=== PATIENT | female | born 1990 | race Caucasian/White ===

== ENCOUNTER 2020-04-30 11:04 | Outpatient (REF) | payer OTHER, SELFPAY | END 2020-04-30 11:05 | disposition home or self-care (01) | LOC: HO.LAB 11:04 | PROVIDERS: Visit Provider Internal Medicine | DX: Z20.828 Contact with and (suspected) exposure to other viral communicable diseases (principal) | CPT/HCPCS: 36415; C9803; U0003 ==

== ENCOUNTER 2020-07-13 08:33 | Outpatient (REF) | payer OTHER, SELFPAY | END 2020-07-13 08:34 | disposition home or self-care (01) | LOC: HO.LAB 08:33 | PROVIDERS: Visit Provider Internal Medicine | DX: Z20.822 Contact with and (suspected) exposure to COVID-19 (principal) | CPT/HCPCS: 36415; C9803; U0003; U0005 ==

== ENCOUNTER 2021-02-18 10:32 | Outpatient (REF) | payer OTHER, SELFPAY ==
[2021-02-18 12:13] LABS: MANUAL DIFF FLAG NO
[2021-02-18 12:55] LABS: Basophils Absolute Auto 0.1 X10*3/uL (0.0-0.2); Basophils Percent Auto 0.6 % (0-2); Eosinophils Absolute Auto 0.4 X10*3/uL (0.0-0.4); Eosinophils Percent Auto 3.8 % (0-4); Hematocrit 40.2 % (37-47); Hemoglobin 12.7 g/dl (12.0-16.0); Imm Gran Abs Auto 0.08 X10*3/uL (0.00-0.03); Imm Gran Pct Auto 0.7 % (0.0-0.4); Lymphocytes Percent Auto 18.9 % (20-40); Mean Corpuscular HGB Conc 31.6 g/dl (31.0-35.0); Mean Platelet Volume 10.8 fL (9.4-12.3); Monocytes Absolute Auto 0.7 X10*3/uL (0.1-1.2); Monocytes Percent Auto 6.3 % (2-11); NRBC Pct Auto 0.2 /100WBC (0.0-0.2); Neutrophils Absolute Auto 7.5 X10*3/uL (2.0-8.3); Neutrophils Percent Auto 69.7 % (45-73); Platelet Count 298 X10*3/uL (160-400); Red Blood Count 4.23 X10*6/uL (4.20-5.50); White Blood Count 10.8 X10*3/uL (4.8-10.8)
[2021-02-18 13:37] LABS: Alanine Aminotransferase 15 U/L (0-31); Albumin Level 4.3 g/dL (3.5-5.0); Alkaline Phosphatase 104 U/L (39-117); Anion Gap 11 (12-20); Aspartate Amino Transferase 16 U/L (5-31); Bilirubin Total 0.2 mg/dL (0.0-1.0); Blood Urea Nitrogen 11 mg/dL (9-16); C Reactive Protein 0.57 mg/dL (< or = 0.50); Calcium 9.4 mg/dL (8.4-10.2); Carbon Dioxide 27 mmol/L (22-29); Chloride 105 mmol/L (96-108); Estimated Glomerular Filt Rate > 60; Glucose Random 94 mg/dL (60-115); Lipase 19 U/L (8-78); Potassium 4.4 mmol/L (3.3-5.1); Sodium 139 mmol/L (135-145); Total Protein 7.4 g/dL (6.5-8.0)
[2021-02-18 13:40] LABS: Amylase 41 U/L (28-100)
== END 2021-02-18 10:33 | disposition home or self-care (01) ==
LOC: HO.LAB 10:32
PROVIDERS: PCP Nurse Practitioner Family; Referring Provider Nurse Practitioner Family; Visit Provider Nurse Practitioner
DX: K21.9 Gastro-esophageal reflux disease without esophagitis (principal); K52.9 Noninfective gastroenteritis and colitis, unspecified; D64.9 Anemia, unspecified
CPT/HCPCS: 36415; 80053; 82150; 83690; 85025; 86140; 99202

== ENCOUNTER 2021-02-21 11:56 | Outpatient (REF) | payer OTHER, SELFPAY ==
[2021-02-21 13:15] LABS: CDiff Gene PCR NEGATIVE (Negative)
== END 2021-02-21 11:57 | disposition home or self-care (01) ==
LOC: HO.LNP 11:56
PROVIDERS: Visit Provider Nurse Practitioner
DX: K21.9 Gastro-esophageal reflux disease without esophagitis (principal); K52.9 Noninfective gastroenteritis and colitis, unspecified
CPT/HCPCS: 87045; 87046; 87338; 87493

== ENCOUNTER 2021-03-07 08:57 | Outpatient (REF) | payer OTHER, SELFPAY ==
--- NOTE | ~2021-03-07 | US_ITS ---
EXAMINATION: US ABDOMEN COMPLETE CLINICAL INFORMATION: Gastroesophageal reflux disease without esophagitis. COMPARISON: CT abdomen and pelvis without contrast dated 12/01/2010. TECHNIQUE: Real-time imaging of the abdominal viscera. FINDINGS: PANCREAS: Normal. ABDOMINAL AORTA: The proximal, mid, and distal segments are normal in caliber. INFERIOR VENA CAVA: Visualized portions are normal. LIVER: The liver is normal in size. The liver contour is normal. Liver echotexture is increased probably representing fatty infiltration. No focal hepatic lesion. There is no intrahepatic biliary duct dilatation seen. GALLBLADDER: Normal. The gallbladder is physiologically distended without evidence of stones, sludge, polyps, wall thickening or pericholecystic fluid. COMMON BILE DUCT: Normal in caliber measuring 0.3 cm in diameter. RIGHT KIDNEY: Normal. No hydronephrosis. No renal calculi or focal parenchymal lesions. The kidney measures 9.6 cm in maximum dimension. LEFT KIDNEY: Normal. No hydronephrosis. No renal calculi or focal parenchymal lesions. The kidney measures 10.2 cm in maximum dimension. SPLEEN: Normal. The spleen measures 9.1 cm in maximum dimension. FREE FLUID: None. US/US abdomen complete IMPRESSION: Echogenic liver probably representing fatty infiltration.
== END 2021-03-07 08:58 | disposition home or self-care (01) ==
LOC: HO.US 08:57
PROVIDERS: PCP Nurse Practitioner Family; Visit Provider Nurse Practitioner
DX: K21.9 Gastro-esophageal reflux disease without esophagitis (principal); K52.9 Noninfective gastroenteritis and colitis, unspecified
CPT/HCPCS: 76700

== ENCOUNTER → 2021-03-19 15:49 | Outpatient (BNVA) | payer OTHER, SELFPAY | PROVIDERS: PCP Nurse Practitioner Family; Visit Provider Nurse Practitioner ==

== ENCOUNTER 2022-05-15 03:01 | Emergency (ER) | payer OTHER, SELFPAY ==
--- NOTE | ~2022-05-15 | XR_ITS ---
EXAMINATION: XR ANKLE, RIGHT CLINICAL INFORMATION: Fall COMPARISON: 11/04/2018 TECHNIQUE: AP, lateral, and mortise views of the right ankle. FINDINGS: No fracture or dislocation. The ankle mortise is congruent. There may be a small ankle joint effusion. Small plantar heel spur. The soft tissues are otherwise unremarkable. XR/XR ankle RT min 3V IMPRESSION: No fracture or malalignment. Possible small ankle joint effusion.
[2022-05-15 03:07] VITALS: BP 106/62; PULSE 76; RESP 16; TEMP 36.6; O2SAT 100; BMI 27.6
--- NOTE | 2022-05-15 03:20 | ED_ITS ---
HPI - Fall General Chief Complaint: Fall Stated Complaint: fall Time Seen by Provider: 05/15/22 03:04 Source: patient Mode of arrival: ambulatory Limitations: no limitations History of Present Illness HPI Narrative: Patient got up in half sleep to go to bathroom which was downstairs loss the step fell down about 12 steps mostly injuring her right ankle complaining of pain in the right ankle with slight swelling no other injuries no head injury no loss of conscious RO seizures no back pain no shortness of breath patient not any blood thinner Related Data Home Medications Medication Instructions Recorded Confirmed levetiracetam 500 mg tablet 500 mg PO BID 02/18/21 sertraline 50 mg tablet 50 mg PO DAILY 02/18/21 Previous Rx's Medication Instructions Recorded famotidine 40 mg tablet (Pepcid) 40 mg PO BEDTIME 30 days #30 tabs 02/18/21 alosetron 0.5 mg tablet (Lotronex) 0.5 mg PO BID 30 days #60 tabs 03/19/21 Allergies Allergy/AdvReac Type Severity Reaction Status Date / Time latex [LATEX] Allergy Severe RASH Verified 05/15/22 03:28 gabapentin [GABAPENTIN] Allergy Unknown TACHYCARDIA, Verified 05/15/22 03:28 heart palpitations Review of Systems Review of Systems: Yes all other systems are reviewed and are negative [facility] Family History Family History Maternal Grandmother No problems noted. Mother No problems noted. Social History Social History Alcohol intake: current Alcohol intake frequency: holidays/special occasions only Smoked in Last 30 Days: No Use of substances other than those prescribed or required for medical reasons: No Advance Directives: No Advance Directives Information Provided: Yes Physical Exam Vital Signs: Vital Signs: Last Vital Signs Temp 97.8 F 05/15/22 03:07 Pulse 76 05/15/22 03:07 Resp 16 05/15/22 03:07 BP 106/62 05/15/22 03:07 Pulse Ox 100 05/15/22 03:07 O2 Del Method 05/15/22 03:07 BMI result Body Mass Index 27.6 Appearance: Alert. Oriented X3. No acute distress. Eyes: PERRLA, No Nystagmus ENT: Pharynx normal. Oral Mucosa moist Neck: Normal inspection. Neck supple. No midline tenderness CVS: Normal heart rate and rhythm. Pulses normal. Respiratory: No respiratory distress. Equal air entry bilateral, no wheezing/rales/rhonchi no rib pain Abdomen: Soft and nontender. Bowel sounds are present, no mass palpable, no CVA tenderness Skin: Skin warm and dry. Normal skin color. Normal skin turgor. back: No spinal tenderness Extremities: No lower extremity edema. No calf tenderness right ankles soft tissue swelling posterolateral malleolus with tenderness no deformity neurovascular intact Neuro: Oriented X 3. No motor deficit. No sensory deficit.No cerebellar signs , cranial nerves II-XII intact Medications Administered Discontinued Medications Generic Name Dose Route Start Last Admin Trade Name Freq PRN Reason Stop Dose Admin Oxycodone HCl 10 mg 05/15/22 03:23 05/15/22 03:35 Oxycodone Hcl Immed Release 5 Mg Tablet PO 05/15/22 03:24 10 mg ONCE ONE Administration Medical Decision Making Medical Decision Making [facility] Narrative: Patient x-ray negative for fracture showed small amount of effusion the right ankle joint likely from the sprain will discharge patient home on ankle brace crutches and ibuprofen Discharge Plan Discharge Clinical Impression: Right ankle sprain Patient Disposition: Home, Self-Care Instructions: Ankle Sprain (ED) Additional Instructions: Ankle brace advised Use crutches for ambulation Ibuprofen for pain Follow with ortho if not better Prescriptions: No Action sertraline 50 mg tablet 50 mg PO DAILY levetiracetam 500 mg tablet 500 mg PO BID famotidine [Pepcid] 40 mg tablet 40 mg PO BEDTIME 30 Days Qty: 30 3RF Rx Instructions: Please cancel order for protonix and fill for pepcid/famotidine only alosetron [Lotronex] 0.5 mg tablet 0.5 mg PO BID 30 Days Qty: 60 3RF Stand Alone Forms: Work/School Release
[2022-05-15] MEDS: oxyCODONE HCl Immed Release 5 MG TABLET 10 MG PO (03:35)
== END 2022-05-15 05:35 | disposition home or self-care (01) ==
PROVIDERS: Emergency Provider Internal Medicine; PCP Nurse Practitioner Family
DX: S93.401A Sprain of unspecified ligament of right ankle, initial encounter (principal); W10.9XXA Fall (on) (from) unspecified stairs and steps, initial encounter; Y93.9 Activity, unspecified; Y92.9 Unspecified place or not applicable; Y99.9 Unspecified external cause status
CPT/HCPCS: 73610; 99283; 99284

== ENCOUNTER 2022-06-20 09:48 | Outpatient (REF) | payer OTHER, SELFPAY ==
--- NOTE | ~2022-06-20 | XR_ITS ---
EXAMINATION: XR ANKLE, RIGHT CLINICAL INFORMATION: Sprain right ankle. Pain COMPARISON: Radiographs right ankle 05/15/2022, right foot 11/04/2018. TECHNIQUE: AP, lateral, and mortise views of the right ankle. FINDINGS: There is lateral soft tissue swelling just distal to the lateral malleolus. The malleoli are intact and the ankle mortise is symmetric. The lateral view shows fine linear mineralization adjacent to the distal posterior tibia 1.7 cm in length. Suspect combination of periosteal reaction and fine cortical avulsion, possibly from a ligamentous tug injury. The talar dome appears normal. The subtalar joint is unremarkable. The retrocalcaneal recess is preserved. There is small plantar calcaneal spur. XR/XR ankle RT min 3V IMPRESSION: Fine linear mineralization adjacent to distal posterior tibia 1.7 cm in length, possibly a fine cortical avulsion and/or periosteal reaction related to ligamentous tug injury. Malleoli otherwise intact and ankle mortice symmetric.
== END 2022-06-20 09:49 | disposition home or self-care (01) ==
LOC: HO.XRAY 09:48
PROVIDERS: PCP Internal Medicine; Visit Provider Internal Medicine
DX: S93.401A Sprain of unspecified ligament of right ankle, initial encounter (principal); X58.XXXA Exposure to other specified factors, initial encounter; Y93.9 Activity, unspecified; Y92.9 Unspecified place or not applicable; Y99.9 Unspecified external cause status
CPT/HCPCS: 73610

== ENCOUNTER 2022-06-30 14:06 | Outpatient (REF) | payer OTHER, SELFPAY ==
--- NOTE | ~2022-06-30 | XR_ITS ---
EXAMINATION: XR ANKLE, RIGHT CLINICAL INFORMATION: Right ankle pain. COMPARISON: None TECHNIQUE: AP, lateral, and mortise views of the right ankle. FINDINGS: The ankle joint and mortise are intact. There is no acute fracture or dislocation. The tarsal bones are normally aligned. There is a small plantar calcaneal spur. Mild soft tissue swelling is seen. XR/XR ankle RT min 3V IMPRESSION: 1. Mild soft tissue swelling without acute underlying osseous abnormality. 2. Small plantar calcaneal spur.
== END 2022-06-30 14:07 | disposition home or self-care (01) ==
LOC: HO.HOSX 14:06
PROVIDERS: Visit Provider Physician Assistant
DX: S93.401A Sprain of unspecified ligament of right ankle, initial encounter (principal)
CPT/HCPCS: 73610; 99202

== ENCOUNTER 2022-08-14 10:47 | Outpatient (REF) | payer OTHER, SELFPAY ==
--- NOTE | ~2022-08-14 | MR_ITS ---
EXAMINATION: MRI ANKLE WITHOUT CONTRAST, RIGHT CLINICAL INFORMATION: Ligament sprain. Patient reports swelling, pain, injury. COMPARISON: X-ray 06/30/2022, 06/20/2022 TECHNIQUE: MRI of the ankle without contrast is performed in a 1.5 Padmini high-field scanner. FINDINGS: BONE/JOINTS: There is linear coronal/transverse oriented T2 bright signal involving the posterior malleolus of the distal tibia. This inferiorly extends to the articular surface, superiorly extending to the posterior cortex of the distal tibia. The appearance is most suggestive of a coronally oriented fracture. The fracture measures approximately 2.1 cm in craniocaudal length, 2.3 cm transverse. There is marrow edema present this region. Mild patchy edema in the more anterior aspect of the tibial plafond. No talar OCD. No additional acute fractures identified. Small tibiotalar joint effusion. Small posterior subtalar joint effusion. MUSCLES/TENDONS: Mild distal posterior tibial tendinosis, with mild increased signal. There is associated mild tenosynovitis. FDL, FHL are intact. Peroneal, extensor tendons intact. LIGAMENTS: Grade 2 sprain/partial tear of the ATFL. Posterior talofibular ligament is intact. Grade 2 sprain/partial tear anterior talofibular ligament. Posterior talofibular ligament appears intact. Mild sprain calcaneofibular ligament. Intact deltoid ligament. ACHILLES TENDON: Intact. Trace retrocalcaneal fluid. PLANTAR FASCIA: Mild thickening and increased signal in the proximal plantar fascia. Associated mild soft tissue edema. SINUS TARSI: Normal signal. TARSAL TUNNEL : No mass lesion SUBCUTANEOUS SOFT TISSUES: Mild subcutaneous edema laterally. MR/MR ankle RT wo con IMPRESSION: 1. Abnormal findings suspicious for a transverse/coronal intra-articular fracture of the posterior malleolus of the distal tibia. This measures 2.1 x 2.3 cm. Associated marrow edema. Further characterization CT scan as clinically warranted. 2. Small tibiotalar joint effusion. Small posterior subtalar joint effusion. 3. Mild posterior tibial tenosynovitis and distal tendinosis. 4. ATFL grade 2 sprain/partial tear. Anterior tibiofibular ligament grade 2 sprain/partial tear. Mild sprain calcaneofibular ligament. 5. Possible mild proximal plantar fasciitis.
== END 2022-08-14 10:48 | disposition home or self-care (01) ==
LOC: HO.MRI 10:47
PROVIDERS: PCP Internal Medicine; Visit Provider Physician Assistant
DX: S93.401A Sprain of unspecified ligament of right ankle, initial encounter (principal)
CPT/HCPCS: 73721

== ENCOUNTER 2022-09-01 14:16 | Outpatient (REF) | payer OTHER, SELFPAY | END 2022-09-01 14:17 | disposition home or self-care (01) | LOC: HO.HOSX 14:16 | PROVIDERS: PCP Internal Medicine; Visit Provider Physician Assistant | DX: S93.401A Sprain of unspecified ligament of right ankle, initial encounter (principal) | CPT/HCPCS: 99212 ==

== ENCOUNTER → 2022-09-04 14:45 | Outpatient (BNVA) | payer OTHER, SELFPAY | PROVIDERS: PCP Internal Medicine; Visit Provider Internal Medicine | DX: S93.401A Sprain of unspecified ligament of right ankle, initial encounter (principal); W50.1XXA Accidental kick by another person, initial encounter | CPT/HCPCS: 73610; 99202 ==

== ENCOUNTER 2022-09-12 06:46 | Outpatient (RCR) | payer OTHER, SELFPAY ==
--- NOTE | 2022-09-12 10:47 | MHC.PT.EP ---
[facility] [place] Office [place] Office [place] Office [address] Karen Adames [address] [phone] F: [phone] F: [phone] F: [phone] F: [phone] Physical Therapy Plan of Care Date of Evaluation: Date of Surgery: Diagnosis: SPRAIN OF RIGHT ANKLE LIG-> ROM, HEEL CORD STRETCHING, PROPRIOCEPTIVE TRAINING Assessment: 32 YO FEMALE REF TO PT W H/O FALLING DOWN HER HOME STAIRS ON AND SPRAINING Rt ATFL AND CALCANEOFIB LIG AND ? FX Rt POSTERIOR MALLEOLAR OF DISTAL TIB. THE Pt HAS BEEN WBAT AND HAS BEEN ISSUED A LACE-UP ANKLE SUPPORT, WHICH SHE NOTES IRRITATES HER SKIN- SHE FELS BEST WEARING FLIP FLOPS. 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 OBJECTIVELY, THE Pt HAS DECR AROM IN HER HIPS AND ANKLES, DECR LUMBOPELV STAB AND PROX LEs WEAKNESS, PAIN W PALP Rt LATERAL POSTINF MALL; DECR FUNCT MOB GALO (STANDING, INCR WALKING, SQUATTING, AND STAIR MGMT). THE Pt IS MOTIVATED FOR PT TO ASSIST HER IN REGAINING HER ROM/ STRENGTH/ AND FUNCT MOB. Frequency and Duration: The patient will be seen 2 x WK x 8 WKS Short Term Goals: *IMPROVE JORGE HIP FLEXIB *INCREASE Rt ANKLE AROM *DECR Rt ANKLE / DISTAL LE PAIN *IMPROVE SQUAT AND GAIT MECH Mcfp Goals: *Pt DEMON WFL / EFFICIENT GAIT MECH/ STAIRS (RECIPROCAL TECHN) / FUNCT SQUAT *SLS Rt x 15 SEC *WFL LUMBOPELVIC STAB, Rt LE STRENGTH INCR BY 1/2 TO 1 GRADE *Pt RESUME RG ADLs AND FITNESS ROUTINE EVIDENT W IMPROVED LEFI SCORE (AT EVAL 51/80) Treatment Plan: Modalities to reduce pain, spasms and effusion. Manual therapy to restore motion and function. Therapeutic exercise to improve strength and flexibility. Neuromuscular re-education for posture and balance. Therapeutic activities to return to functional activities of daily living. Electronically signed by: DANIELLE MAGALLANES,PT Please sign and return to therapist. Thank you for your referral.
--- NOTE | 2022-10-07 13:17 | MHC.PT.DC ---
[facility] [place] Office [place] Office [place] Office [address] Karen Adames [address] [phone] F: [phone] F: [phone] F: [phone] F: [phone] Physical Therapy Discharge Report Diagnosis: SPRAIN OF RIGHT ANKLE LIG-> ROM, HEEL CORD STRETCHING, PROPRIOCEPTIVE TRAINING Date of Surgery: Date of Evaluation: 09/12/22 Date of Discharge: Treatments to Date: 1 Cancellations to Date: 0 No Shows to Date: 0 Discharge Status: Discharge Summary: 32 YO FEMALE REF TO PT W H/O FALLING DOWN HER HOME STAIRS ON AND SPRAINING Rt ATFL AND CALCANEOFIB LIG AND ? FX Rt POSTERIOR MALLEOLAR OF DISTAL TIB. THE Pt HAS BEEN WBAT AND HAS BEEN ISSUED A LACE-UP ANKLE SUPPORT, WHICH SHE NOTES IRRITATES HER SKIN- SHE FELS BEST WEARING FLIP FLOPS. 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 OBJECTIVELY, THE Pt HAS DECR AROM IN HER HIPS AND ANKLES, DECR LUMBOPELV STAB AND PROX LEs WEAKNESS, PAIN W PALP Rt LATERAL POSTINF MALL; DECR FUNCT MOB GALO (STANDING, INCR WALKING, SQUATTING, AND STAIR MGMT). THE Pt IS MOTIVATED FOR PT TO ASSIST HER IN REGAINING HER ROM/ STRENGTH/ AND FUNCT MOB. Electronically signed by: Please sign and return to therapist. Thank you for your referral.
== END 2022-10-07 13:18 | disposition home or self-care (01) ==
LOC: HO.PT 06:46
PROVIDERS: Visit Provider Physician Assistant
DX: S93.401D Sprain of unspecified ligament of right ankle, subsequent encounter (principal)
CPT/HCPCS: 97110; 97162

== ENCOUNTER 2023-03-26 11:58 | Emergency (ER) | payer OTHER, SELFPAY ==
--- NOTE | ~2023-03-26 | CT_ITS ---
EXAMINATION: CT ABDOMEN AND PELVIS WITH CONTRAST CLINICAL INFORMATION: Left lower quadrant pain. COMPARISON: 12/01/2010. TECHNIQUE: Multidetector volumetric images were obtained from the superior aspect of the liver through the pubic symphysis following administration 85 mL of Omnipaque 350 intravenous contrast. Sagittal and coronal reformatted images were obtained on the technologist's workstation. Oral contrast: No This CT examination was performed using dose optimization techniques as appropriate, variously including the following: *Automated exposure control *Adjustment of mA and/or kV according to patient size (this includes techniques or standardized protocols for targeted exams where dose is matched to indication/reason for exam; i.e. extremities or head) *Use of iterative reconstruction technique DLP: 662 mGy-cm FINDINGS: LUNG BASES: The visualized lung bases are unremarkable. LIVER, GALLBLADDER, AND BILIARY TREE: The liver is normal in size, shape, and attenuation. No focal hepatic lesion or biliary ductal dilatation is present. The gallbladder is unremarkable with no evidence of radiopaque gallstones, gallbladder wall thickening, or obvious pericholecystic inflammatory changes. PANCREAS: Unremarkable. SPLEEN: Unremarkable. ADRENAL GLANDS: Unremarkable. KIDNEYS AND URETERS: The kidneys are normal in size, shape, and attenuation. No hydronephrosis, hydroureter, or calculi seen. No perinephric stranding. BLADDER: Unremarkable. GASTROINTESTINAL TRACT: The small and large bowel are unremarkable. The appendix is not confidently seen as a separate structure. ABDOMINAL WALL: No significant hernia is appreciated. LYMPH NODES: Normal. VASCULAR: Unremarkable. PELVIC VISCERA: Unremarkable. OSSEOUS STRUCTURES: Unremarkable. CT/CT abdomen pelvis w IV con IMPRESSION: No acute intra-abdominal process. Fleischner guidelines were followed.
[2023-03-26 12:21] VITALS: BP 138/63; PULSE 83; RESP 18; TEMP 36.4; O2SAT 100; BMI 33.8
[2023-03-26 13:24] LABS: MANUAL DIFF FLAG NO
[2023-03-26 13:25] LABS: Basophils Absolute Auto 0.1 X10*3/uL (0.0-0.2); Basophils Percent Auto 0.5 % (0-2); Eosinophils Absolute Auto 0.2 X10*3/uL (0.0-0.4); Eosinophils Percent Auto 1.9 % (0-4); Hematocrit 38.9 % (37.0-47.0); Hemoglobin 12.7 g/dl (12.0-16.0); Imm Gran Abs Auto 0.11 X10*3/uL (0.00-0.03); Lymphocytes Percent Auto 18.1 % (20-40); Mean Corpuscular HGB Conc 32.6 g/dl (31.0-35.0); Mean Corpuscular Hemoglobin 29.8 pg (27.0-33.0); Mean Corpuscular Volume 91.3 fL (80.0-98.0); Mean Platelet Volume 10.4 fL (9.4-12.3); Monocytes Absolute Auto 0.7 X10*3/uL (0.1-1.2); Monocytes Percent Auto 6.3 % (2-11); Neutrophils Absolute Auto 7.9 x10*3/uL (2.0-8.3); Neutrophils Percent Auto 72.2 % (45-73); Platelet Count 309 X10*3/uL (160-400); Red Blood Count 4.26 X10*6/uL (4.20-5.50); Red Cell Distribution Width 12.6 % (11.0-16.0); White Blood Count 10.9 X10*3/uL (4.8-10.8)
[2023-03-26 13:39] LABS: Alanine Aminotransferase 16 U/L (0-31); Albumin Level 4.4 g/dL (3.5-5.0); Alkaline Phosphatase 113 U/L (39-117); Anion Gap 12 (12-20); Aspartate Amino Transferase 17 U/L (5-31); Bilirubin Total 0.2 mg/dL (0.0-1.0); Blood Urea Nitrogen 14 mg/dL (9-16); Calcium 9.7 mg/dL (8.4-10.2); Carbon Dioxide 27 mmol/L (22-29); Chloride 102 mmol/L (96-108); Creatinine Clr Calc Pharmacy 117.2; Estimated Glomerular Filt Rate > 60; Glucose Random 98 mg/dL (60-115); Potassium 4.4 mmol/L (3.3-5.1); Sodium 137 mmol/L (135-145); Total Protein 8.3 g/dL (6.5-8.0)
--- NOTE | 2023-03-26 19:29 | MHC.EDTECH ---
pts urine sample was not enough to send
--- NOTE | 2023-03-26 19:49 | ED.GENADULT ---
HPI - General Adult General Chief complaint: Abdominal Pain Stated complaint: Gastro issues - referred by PCP Time Seen by Provider: 03/26/23 19:28 Source: patient Mode of arrival: ambulatory Limitations: no limitations History of Present Illness HPI narrative: Pt is a 33yo female who presents with 1.5mo of bloody diarrhea. Pt states she has a hx of IBS but about a month and a half ago she started having blood in her diarrhea. She states every BM is diarrhea and 7/10 contain blood. Some BM also contain white pus. 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 She notes increased gas and bloating as well as a constant dull LLQ pain. When she has a BM or feels the urge to defecate, the dull pain becomes sharp, radiating to her back. Pt reports approximately 6 BM per day and has started to bring an extra pair of clothes to work due to bowel incontinence. Related Data Home Medications Medication Instructions Recorded Confirmed levetiracetam 500 mg tablet 500 mg PO BID 02/18/21 09/01/22 sertraline 50 mg tablet 50 mg PO DAILY 02/18/21 09/01/22 Previous Rx's Medication Instructions Recorded famotidine 40 mg tablet (Pepcid) 40 mg PO BEDTIME 30 days #30 tabs 02/18/21 alosetron 0.5 mg tablet (Lotronex) 0.5 mg PO BID 30 days #60 tabs 03/19/21 ibuprofen 600 mg tablet 600 mg PO Q6H PRN fever or pain 05/15/22 #30 tabs amoxicillin 875 mg-potassium 1 tab PO BID #14 tabs 03/26/23 clavulanate 125 mg tablet Allergies Allergy/AdvReac Type Severity Reaction Status Date / Time latex [LATEX] Allergy Severe RASH Verified 03/26/23 12:20 gabapentin [GABAPENTIN] Allergy Unknown TACHYCARDIA, Verified 03/26/23 12:20 heart palpitations Review of Systems Constitutional: Constitutional: Denies chills, Denies fever(s) and Denies headache(s) Eyes: Eyes: Denies change in vision ENT: Denies headache(s) and Reports other (lightheadedness) Cardiovascular: Cardiovascular: Denies chest pain and Denies dyspnea Respiratory: Respiratory: Denies cough and Denies dyspnea Gastrointestinal: Gastrointestinal: Reports bloating, Reports hematochezia, Reports tenesmus, Denies constipation, Reports excessive flatus, Reports fecal incontinence, Reports diarrhea, Reports vomiting and Denies hematemesis Genitourinary: Genitourinary: Denies dysuria Neurologic: Denies headache(s) [facility] Past Medical History Surgical History Hx of tubal ligation Family History Family History Maternal Grandmother No problems noted. Mother No problems noted. 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 Physical Exam ED Vital Signs: Vital Signs - 24 hr 03/26/23 12:21 Temperature 97.5 F Pulse Rate 83 Respiratory Rate 18 Blood Pressure 138/63 Pulse Oximetry 100 Oxygen Delivery Method Room Air BMI result Body Mass Index 33.8 Const General: cooperative, comfortable, no acute distress, alert and awake Orientation/consciousness: patient oriented x3 Limitations: no limitations HENMT Head: Yes normocephalic and Yes atraumatic Ears: hearing grossly normal bilaterally General nose exam: Normal external nose present Eyes General: appearance normal, both eyes and all related structures Resp Effort & Inspection: normal respiratory effort and able to speak in complete sentences Auscultation: clear to auscultation bilaterally Cardio Rate: regular rate Rhythm: regular rhythm Heart sounds: S1 normal heart sound present and S2 normal heart sound present GI Palpation (GI): Soft to palpation and Tenderness to palpation present (GI) in the LLQ and suprapubicly Auscultation: normal bowel sounds Rectal Exam - Female: deferred (offered and patient declined) Neuro General: patient oriented x3 Cranial nerves: Yes CN's II-XII intact bilaterally Gait exam (Neuro): Normal gait present Motor exam (neuro): 5/5 motor strength present throughout Course Reevaluation(s) Reevaluation #1: Patient's CT scan shows no acute findings. Given the bloody diarrhea with pus/mucus will treat with Augmentin b.i.d. x7 days. She is also given a GI referral for likely IBD Time: 22:00 Medications Administered Discontinued Medications Generic Name Dose Route Start Last Admin Trade Name [place] PRN Reason Stop Dose Admin Iohexol 85 ml 03/26/23 21:17 03/26/23 21:17 Iohexol 350 Mg/Ml 100 Ml Infus..Btl IV 03/26/23 21:18 85 ml ONCE ONE Administration Medical Decision Making Medical Decision Making [facility] Narrative: 33-year-old female presents for evaluation of abdominal pain, intermittent bloody stools.Patient declined rectal examination at this time. I feel it is most important for the patient to follow-up with GI for colonoscopy/endoscopy. Her hemoglobin hematocrit within normal limits. Given the left lower quadrant abdominal tenderness on exam with bloody diarrhea with a CT scan to evaluate for diverticulitis/infectious colitis. Differential Diagnosis Differential Diagnoses: The differential diagnosis associated with the presentation includes (ulcerative colitis, diverticulosis, IBS, GI bleed, Chron's disease) Lab Data MDM Lab Attestation statement: I reviewed the patient's lab results. Mild leukocytosis to 10.9 K. No anemia. Normal platelet count. No electrolyte abnormalities. 03/26/23 13:17 03/26/23 13:17 Labs: Lab Results 03/26/23 Range/Units 13:17 WBC 10.9 H (4.8-10.8) X10*3/uL RBC 4.26 (4.20-5.50) X10*6/uL Hgb 12.7 (12.0-16.0) g/dl Hct 38.9 (37.0-47.0) % MCV 91.3 (80.0-98.0) fL MCH 29.8 (27.0-33.0) pg MCHC 32.6 (31.0-35.0) g/dl RDW 12.6 (11.0-16.0) % Plt Count 309 (160-400) X10*3/uL MPV 10.4 (9.4-12.3) fL Immature Gran % (Auto) 1.0 H (0.0-0.4) % Neut % (Auto) 72.2 (45-73) % Lymph % (Auto) 18.1 L (20-40) % [place] % (Auto) 6.3 (2-11) % Eos % (Auto) 1.9 (0-4) % Baso % (Auto) 0.5 (0-2) % Lymph # (Auto) 2.0 (1.2-4.9) X10*3/uL [place] # (Auto) 0.7 (0.1-1.2) X10*3/uL Eos # (Auto) 0.2 (0.0-0.4) X10*3/uL Baso # (Auto) 0.1 (0.0-0.2) X10*3/uL Abs Immat Gran (auto) 0.11 H (0.00-0.03) X10*3/uL Absolute Neuts (auto) 7.9 (2.0-8.3) x10*3/uL Absolute Nucleated RBC 0.000 (0.0-0.012) X10*3/uL Nucleated RBC % (auto) 0.0 (0.0-0.2) /100WBC Sodium 137 (135-145) mmol/L Potassium 4.4 (3.3-5.1) mmol/L Chloride 102 (96-108) mmol/L Carbon Dioxide 27 (22-29) mmol/L Anion Gap 12 (12-20) BUN 14 (9-16) mg/dL Creatinine 0.62 (0.5-1.4) mg/dL Estim Creat Clear Calc 117.2 Estimated GFR > 60 Random Glucose 98 (60-115) mg/dL Calcium 9.7 (8.4-10.2) mg/dL Total Bilirubin 0.2 (0.0-1.0) mg/dL AST 17 (5-31) U/L ALT 16 (0-31) U/L Alkaline Phosphatase 113 (39-117) U/L Total Protein 8.3 H (6.5-8.0) g/dL Albumin 4.4 (3.5-5.0) g/dL Discharge Plan Discharge Clinical Impression: Bloody diarrhea Patient Disposition: Home, Self-Care Instructions: Infectious Colitis (ED) Additional Instructions: Your CT scan and blood work did not show any concerning findings. I think it is important that you follow-up with GI. You may follow-up with Dr. Indiana bowie provided Take Augmentin twice daily for the next 7 days to treat colitis Prescriptions: New amoxicillin-pot clavulanate 875-125 mg tablet 1 tab PO BID Qty: 14 0RF No Action ibuprofen 600 mg tablet 600 mg PO Q6H PRN (Reason: fever or pain) Qty: 30 0RF sertraline 50 mg tablet 50 mg PO DAILY levetiracetam 500 mg tablet 500 mg PO BID famotidine [Pepcid] 40 mg tablet 40 mg PO BEDTIME 30 Days Qty: 30 3RF Rx Instructions: Please cancel order for protonix and fill for pepcid/famotidine only alosetron [Lotronex] 0.5 mg tablet 0.5 mg PO BID 30 Days Qty: 60 3RF
[2023-03-26] MEDS: iohexoL 350 MG/ML 100 ML INFUS..BTL 85 ML IV (21:17)
--- NOTE | 2023-03-26 21:32 | PC.NURSE ---
20g IV access established in right AC. CT scan pending.
== END 2023-03-26 22:33 | disposition home or self-care (01) ==
PROVIDERS: Emergency Provider Emergency Medicine; PCP Nurse Practitioner Family
DX: R19.7 Diarrhea, unspecified (principal); R10.32 Left lower quadrant pain; R11.2 Nausea with vomiting, unspecified; Z79.899 Other long term (current) drug therapy
CPT/HCPCS: 36415; 74177; 80053; 85025; 99282; 99284; Q9967

== ENCOUNTER 2023-05-01 12:00 | Outpatient (REF) | payer OTHER, SELFPAY | END 2023-05-01 12:01 | disposition home or self-care (01) | LOC: HO.LAB 12:00 | PROVIDERS: PCP Nurse Practitioner Family; Visit Provider Nurse Practitioner | DX: R53.83 Other fatigue (principal); K58.0 Irritable bowel syndrome with diarrhea; K21.9 Gastro-esophageal reflux disease without esophagitis; K52.9 Noninfective gastroenteritis and colitis, unspecified | CPT/HCPCS: 36415; 82306; 82607; 82746; 84443; 99212 ==

== ENCOUNTER 2023-05-01 12:00 | Outpatient (AMB) | payer OTHER, SELFPAY ==
--- NOTE | 2023-05-01 12:02 | MHC.OFFVIS ---
Intake Vital Signs 05/01/23 12:04 Height 5 ft Weight 174 lb 2.643 oz BMI 34.0 BP 107/62 Blood Pressure Location Lt brachial Position Sitting Pulse 74 Intake Visit Reasons: ED follow up, needs colonoscopy Intake Note: Cristina presents in the office as a ED follow up - needs colonoscopy. CC: She states that she is having lots of concerns. She was supposed to have a colonoscopy before but she lost her insurance so she needs to get back with all that again. Allergies latex [LATEX] Allergy (Severe, Verified 05/01/23 12:05) RASH gabapentin [GABAPENTIN] Allergy (Unknown, Verified 05/01/23 12:05) TACHYCARDIA, heart palpitations HPI ED follow up, needs colonoscopy HPI Details Assessment & Plan (1) Irritable bowel syndrome with diarrhea: ?Code(s): K58.0 - Irritable bowel syndrome with diarrhea ?Plan: Her symptoms remain unchanged and the pain on the left mid to lower abdomen has somewhat worsened.? We review all the labs in the ultrasound and I tell her that nothing concerning is showing and particularly the does not appear to be any infection so I think that this means we can safely treat her symptomatically for irritable bowel syndrome.? I suggest we start Lotronex a since it is easy to dose and usually does better than the bulking agents for folks with irritable bowel.? She was educated strongly that if she becomes constipated she needs to stop the medication and call me because of the risk of small-bowel obstruction.? Will start this 0.5 mg dose twice a day.? I want to see her in 2 weeks and she is to call me if she does not receive the medication.? (2) GERD (gastroesophageal reflux disease): ?Code(s): K21.9 - Gastro-esophageal reflux disease without esophagitis ?Plan: She continues on famotidine for this ? ? ? Medications:?New alosetron (Lotrone x) 0.5 mg? PO BID 30 days 60 tabs 3RF F K58.0 - Irritable bowel syndrome wit h diarrhea ? Laboratory Tests 10/12/18 09/16/19 01/14/20 15:59 00:23 00:47 WBC 10.9 H 15.6 H 13.7 H C-Reactive Protein 02/18/21 02/18/21 03/26/23 12:11 12:11 13:17 WBC 10.8 10.9 H C-Reactive Protein 0.57 H TODAY'S VISIT APPARENTLY SHE WAS SEEN IN THE ER 03/26/2023 FOR BLOODY DIARRHEA WITH A RELATIVELY NEGATIVE WORKUP except for a mild case of leukocytosis. She was discharged with Augmentin. She never received the Lotronex so obviously this did not help. She presented to the ER because she was having copious blood that filled the toilet bowl. They sent her back to me treating her with Augmentin because of her ?leukocytosis? but suggested that she needed a colonoscopy because she likely had inflammatory bowel disease. As I suspected the Augmentin did not help with the diarrhea. I also do not think inflammatory bowel disease is high in the differential diagnosis because this patient has had chronic diarrhea for many years without any break (the exacerbating remitting nature of IBD) and she is not showing any signs of severe bleeding or weight loss. Also, she has chronic leukocytosis and in fact on the night she presented her white blood cell count was at the lower level to what usually runs. It is also curious that if they strongly felt she had IBD why they treated her with antibiotic instead of steroids. Nevertheless were going to do a fecal calprotectin to try to put this idea to rest as soon as possible. Because she was in between insurance coverage in now she has coverage will try again to get her on the Lotronex or Viberzi depending on which is covered. Should the fecal calprotectin come back elevated then will consider changing coarsened treating her with steroids. The CT scan is very reassuring, also, if she had inflammatory bowel disease we would see inflammation throughout the bowel contributing and the CT scan was completely negative for anything concerning including possible diverticulitis. She is also complaining of fatigue that is different from just being tired that she has felt in the past despite her busy lifestyle. She is the mother of young children she does work full-time but she knows her body in this is different than what she has experienced in the past. With this in mind we will do some vitamin levels including B12 folate and vitamin D and get a thyroid check. Her says she snores occasionally so if this is not definitive we may want to consider sleep study. Return office visit in 2 weeks [facility] Surgical History Hx of tubal ligation Family History Maternal Grandmother No problems noted. Mother No problems noted. 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 Review of Systems Const Reports fatigue, Denies fever(s), Denies night sweats, Reports poor appetite and Denies weight loss ENT Reports Normal hearing present, Denies dental pain, Denies dysphagia, Denies hearing loss, Denies mouth pain, Denies odynophagia, Denies throat swelling, Denies tongue swelling and Reports other (Dentition adequate) Card Reports no additional complaints Resp Reports no additional complaints GI Denies abdominal pain, Denies melena, Denies bloating, Denies hematochezia, Denies constipation, Reports GI cramping, Denies dysphagia, Denies excessive flatus, Denies early satiety, Denies heartburn, Reports diarrhea, Denies nausea, Denies odynophagia, Denies vomiting and Denies hematemesis Skin/Breast Denies pruritus, Denies lesions, Denies rash and Denies jaundice Neuro Reports Normal hearing present and Denies Abnormal speech present Endo Reports fatigue Aller/Immun Denies throat swelling and Denies tongue swelling Physical Exam Vital Signs: Last Vital Signs Pulse 74 05/01/23 12:04 BP 107/62 05/01/23 12:04 BMI result Body Mass Index 34.0 Const General: cooperative, no acute distress, well developed and well groomed Nutritional Appearance: well nourished and obese Orientation/consciousness: oriented to person, oriented to place and oriented to time Limitations: No language barrier HEENT Head: Yes normocephalic and Yes atraumatic Eyes General: appearance normal, both eyes and all related structures Pupils: Equal, round and reactive pupils present Neck Neck: Yes normal visual inspection and Yes no lymphadenopathy Thyroid: Thyroid normal Resp Effort & Inspection: normal respiratory effort and able to speak in complete sentences Auscultation: clear to auscultation bilaterally Cardio Rate: regular rate Rhythm: regular rhythm Heart sounds: Normal, physiologic split S2 sound present Peripheral pulses: radial pulses present and posterior tibial pulses present GI Inspection: No distended, No Abdominal panniculus present and Yes obesity Palpation (GI): Soft to palpation, nontender, no guarding, not rigid and No hepatosplenomegaly present Percussion: Yes normal to percussion Auscultation: normal bowel sounds Rectal Exam - Female: deferred Skin General skin exam: no rashes or lesions noted, turgor normal, skin not dry, no jaundice, No spider nevi and no striae Rashes: no rashes Nails: normal Neuro General: oriented to person, oriented to place and oriented to time Cranial nerves: Yes Equal, round and reactive pupils present and Yes Normal hearing present Speech: No Abnormal speech present Extrem General: Yes normal to inspection, No clubbing, No cyanosis and No edema Psych Appearance: grossly normal and well kempt Mental Status: mental status grossly normal Speech and movement: Normal speech and movement present Affect: normal affect Attitude: cooperative Thought process: Normal thought process present and not confabulating Thought content: Normal thought content present Insight: Fair insight present (Psych) Judgement: Fair judgement present (Psych) Results Reviewed Results Reviewed: Laboratory Tests 10/12/18 09/16/19 01/14/20 15:59 00:23 00:47 WBC 10.9 H 15.6 H 13.7 H C-Reactive Protein 02/18/21 02/18/21 03/26/23 12:11 12:11 13:17 WBC 10.8 10.9 H C-Reactive Protein 0.57 H Assessment & Plan Assessment & Plan (1) Irritable bowel syndrome with diarrhea: Code(s): K58.0 - Irritable bowel syndrome with diarrhea (2) GERD (gastroesophageal reflux disease): Code(s): K21.9 - Gastro-esophageal reflux disease without esophagitis (3) Chronic diarrhea: Code(s): K52.9 - Noninfective gastroenteritis and colitis, unspecified (4) Fatigue: Code(s): R53.83 - Other fatigue Plan APPARENTLY SHE WAS SEEN IN THE ER 03/26/2023 FOR BLOODY DIARRHEA WITH A RELATIVELY NEGATIVE WORKUP except for a mild case of leukocytosis. She was discharged with Augmentin. She never received the Lotronex so obviously this did not help. She presented to the ER because she was having copious blood that filled the toilet bowl. They sent her back to me treating her with Augmentin because of her ?leukocytosis? but suggested that she needed a colonoscopy because she likely had inflammatory bowel disease. As I suspected the Augmentin did not help with the diarrhea. I also do not think inflammatory bowel disease is high in the differential diagnosis because this patient has had chronic diarrhea for many years without any break (the exacerbating remitting nature of IBD) and she is not showing any signs of severe bleeding or weight loss. Also, she has chronic leukocytosis and in fact on the night she presented her white blood cell count was at the lower level to what usually runs. It is also curious that if they strongly felt she had IBD why they treated her with antibiotic instead of steroids. Nevertheless were going to do a fecal calprotectin to try to put this idea to rest as soon as possible. Because she was in between insurance coverage in now she has coverage will try again to get her on the Lotronex or Viberzi depending on which is covered. Should the fecal calprotectin come back elevated then will consider changing coarsened treating her with steroids. The CT scan is very reassuring, also, if she had inflammatory bowel disease we would see inflammation throughout the bowel contributing and the CT scan was completely negative for anything concerning including possible diverticulitis. She is also complaining of fatigue that is different from just being tired that she has felt in the past despite her busy lifestyle. She is the mother of young children she does work full-time but she knows her body in this is different than what she has experienced in the past. With this in mind we will do some vitamin levels including B12 folate and vitamin D and get a thyroid check. Her says she snores occasionally so if this is not definitive we may want to consider sleep study. Return office visit in 2 weeks Orders: Orders Calprotectin, Fecal 05/05/23 K52.9 - Noninfective gastroenteritis and colitis, unspecified Vitamin B12 and Folate 05/01/23 R53.83 - Other fatigue Vitamin D 25-OH Total 05/01/23 R53.83 - Other fatigue Colonoscopy - GI Use Only 05/01/23 K52.9 - Noninfective gastroenteritis and colitis, unspecified TSH reflex Free T4 05/01/23 R53.83 - Other fatigue Medications: New alosetron (Lotronex) 0.5 mg PO BID 60 tabs 3RF K58.0 - Irritable bowel syndrome with diarrhea sod picosulf-mag ox-citric ac 10 mg-3.5 gram- 12 gram/160 mL (Clenpiq) take first dose at 5-9PM evening before colonoscopy; 2nd dose the next day approximately 5 hrs before colonoscopy 160 mL PO DAILY 320 mL 0RF 2 doses K52.9 - Noninfective gastroenteritis and colitis, unspecified hydrocortisone 2.5% (Proctosol HC) BE SURE TO INCLUDE RECTAL APPICATOR!! 1 appl VA BID 30 grams 6RF hemorrhoids K64.9 - Unspecified hemorrhoids Coding Level of Care Code Est Pt Level 4 (17736) Diagnoses Irritable bowel syndrome with diarrhea K58.0 GERD (gastroesophageal reflux disease) K21.9 Chronic diarrhea K52.9 Fatigue R53.83 Time Spent (min) 33
[2023-05-01 12:04] VITALS: BP 107/62; PULSE 74; BMI 34.0
== END 2023-05-01 12:37 | disposition home or self-care (01) ==
PROVIDERS: PCP Nurse Practitioner Family; Visit Provider Nurse Practitioner
DX: K58.0 Irritable bowel syndrome with diarrhea (principal); K21.9 Gastro-esophageal reflux disease without esophagitis; K52.9 Noninfective gastroenteritis and colitis, unspecified; R53.83 Other fatigue
CPT/HCPCS: 99214

== ENCOUNTER 2023-05-04 08:03 | Outpatient (REF) | payer OTHER, SELFPAY ==
[2023-05-11 22:18] LABS: Calprotectin, Fecal 46 mcg/g
== END 2023-05-04 08:04 | disposition home or self-care (01) ==
LOC: HO.LNP 08:03
PROVIDERS: Visit Provider Nurse Practitioner
DX: K52.9 Noninfective gastroenteritis and colitis, unspecified (principal)
CPT/HCPCS: 83993